=== PATIENT | female | born 2000 | race Caucasian/White ===

== ENCOUNTER 2020-07-04 04:18 | Outpatient (CLI) | payer OTHER ==
--- NOTE | 2020-07-04 06:02 | Non Stress Test Report ---
Non Stress Test Datetime Report Generated by CPN: 07/04/2020 06:02 DEMOGRAPHIC EGA NST: 40.4 INDICATION Indication for Study (NST) Other: lc MONITORING Monitor Explained: Monitor Explained; Test Explained; Patient Verbalized Understanding Time on Monitor: 07/04/2020 04:40 Time off Monitor: 07/04/2020 05:12 NST Duration: 32 NST INTERVENTIONS NST Interventions: PO Hydration; Reposition Patient Physician Notified NST: Dr Ricks BABY A: [id number] BABY A Movement : Present Contraction Frequency : 0 FHR Baseline : 145 Accelerations : 15X15 Decelerations : None Variability : Moderate 6-25bpm NST Review: Meets Criteria for Reactive NST NST Review and Verified By : APRIL Dyer Results: Reactive NST REPORT Report Trigger: Send Report
[2020-07-04 06:23] LABS: APPEARANCE,URINE SLIGHTLY-CLOUDY; BILIRUBIN,URINE NEGATIVE (NEGATIVE); COLOR,URINE YELLOW; GLUCOSE, URINE NEGATIVE (NEGATIVE); KETONES,URINE NEGATIVE (NEGATIVE); LEUKOCYTE ESTERASE,URINE NEGATIVE (NEGATIVE); NITRITE,URINE NEGATIVE (NEGATIVE); PROTEIN,URINE NEGATIVE (NEGATIVE); URINE SPECIFIC GRAVITY 1.019; UROBILINOGEN,URINE NEGATIVE mg/dL (<2.0)
[2020-07-04 06:41] LABS: URINE AMPHETAMINES SCREEN NEGATIVE; URINE BARBITURATES SCREEN NEGATIVE; URINE BENZODIAZEPINES SCREEN NEGATIVE; URINE COCAINE SCREEN NEGATIVE; URINE MARIJUANA (THC) SCREEN NEGATIVE; URINE METHADONE SCREEN NEGATIVE; URINE PHENCYCLIDINE SCREEN NEGATIVE
--- NOTE | 2020-07-05 03:39 | Admission Physical ---
Datetime Report Generated by CPN: 07/05/2020 03:39 CURRENT ADMISSION Chief Complaint: Uterine Contractions Indication for Induction: Not Applicable Admit Impression : Term, Intrauterine ; Active Labor Admit Plan: Admit to Unit; Initiate Labor Protocol ALLERGIES Medication Allergies: No Medication Allergies: No Known Allergies (07/04/2020) Latex: No Latex Allergies OBSTETRICAL HISTORY EDC: 06/30/2020 00:00 : 2 Para: 1 Term: 1 Livin Gestational Diabetes: No Rh Sensitization: No Incompetent Cervix: No MBALE: No Infertility: No ART Treatment: No Uterine Anomaly: No IUGR: No Hx Previous C/S: No Macrosomia: No Hx Loss/Stillborn: No PIH: No Hx : No Placenta Previa/Abruption: No Depression/PP Depression: No PTL/PROM: No Post Hemorrhage: No MEDICAL HISTORY Diabetes: No Blood Transfusion: No Pulmonary Disease (Asthma, TB): No Breast Disease: No Hypertension: No Gritting Machine Operator Surgery: No Heart Disease: No Hosp/Surgery: Yes Autoimmune Disorder: No Anesthetic Complications: No Kidney Disease: No Abnormal Pap Smear: No Neuro/Epilepsy: No Psychiatric Disorders: No Other Medical Diseases: No Hepatitis/Liver Disease: No Significant Family History: No Varicosities/Phlebitis: No Trauma/Violence : No Thyroid Dysfunction: No Medical History Comments: wisdom teeth removal INFECTIOUS HISTORY Gonorrhea: No Genital Herpes: No Chlamydia: No Tuberculosis: No Syphilis: No Hepatitis: No HIV/AIDS Exposure: No Rash or Viral Illness: No HPV: No PHYSICAL EXAM General: Normal HEENT: Normal Neurologic: Normal Thyroid: Normal Heart: Normal Lungs: Normal Breast: Normal Back: Normal Abdomen: Normal Genitourinary Exam: Normal Extremities: Normal DTRs: Normal Pelvic Type: Adequate Vital Signs: Reviewed VAGINAL EXAM Dilatation: 8 Effacement: 100 Station: -1 MEMBRANES Pooling: Negative Membranes: Intact FETUS A EGA: 40.5 Monitoring: External US FHR- Baseline: 150 Variability: Moderate 6-25bpm Accelerations: 15X15 Decelerations: None FHR Category: Category I Estimated Weight (gm): 3400 Presentation: Vertex Admit Comment: delivered within 20 min of arrival to L_D INFORMED CONSENT Signature: with User ID: Savana
--- NOTE | 2020-07-05 04:58 | Birth Certificate Data ---
Cert Data Datetime Report Generated by CPMan: 07/05/2020 04:58 CERTIFICATE DATA 47a. Care: No (07/04/2020 04:23:Mirna Hogan RN) 47b. Date of First Visit: 12/25/2019 00:00 (07/04/2020 04:23:Mirna Hogan RN) 47c. Date of Last Visit: 06/07/2020 00:00 (07/04/2020 04:23:Mirna Hogan RN) 47d. Number of Visits: 3 (07/04/2020 04:23:Mirna Hogan RN) 48a. Number of Prev Live Births: 1 (07/04/2020 04:23:Mirna Hogan RN) 48b. Now Livin (07/04/2020 04:23:Mirna Hogan RN) 48c. Live Births Now : 0 (07/04/2020 04:23:QS system process) 48e. Losses: 0 (07/04/2020 04:23:Mirna Hogan RN) RISK FACTORS IN THIS 49a. Diabetes: No (07/04/2020 04:23:Alycia Velez RN) 49b. Hypertension: No (07/04/2020 04:23:Alycia Velez RN) 49c. Previous Births: 0 (07/04/2020 04:23:Mirna Hogan RN) 49d. Stillborns: No (07/04/2020 04:23:Alycia Velez RN) 49d. IUGR: No (07/04/2020 04:23:Alycia Velez RN) 49e. Infertility Treatment: No (07/04/2020 04:23:Alycia Velez RN) 49f. Previous Cesareans: 0 (07/04/2020 04:23:Mirna Hogan RN) Mother's Height 50b. Height Inches: 66 (07/04/2020 05:54:QS system process) Mother's Weight 51a. Pre- Weight (lbs): 120 (07/04/2020 04:23:Mirna Hogan RN) 51b. Weight at Delivery (lbs): 174 (07/04/2020 05:54:QS system process) 52. Dt Last Normal Menses Began: 09/09/2019 00:00 (07/04/2020 04:23:Mirna Hogan RN) Infections Present/Treated 53a. Gonorrhea: No (07/04/2020 04:23:Alycia Velez RN) 53b. Syphilis: No (07/04/2020 04:23:Alycia Velez RN) 53c. Chlamydia: No (07/04/2020 04:23:Alycia Velez RN) 53d. Hepatitis B: No (07/04/2020 04:23:Alycia eVlez RN) Results this Hospital Visit: Unknown (07/04/2020 04:23:Mirna Hogan RN) 53h. Mother Tested for HBsAG: No (07/04/2020 04:23:Mirna Hogan RN) 53j. Test Result: Unknown (07/04/2020 04:23:Mirna Hogan RN) Cigarette Smoking Cigarette Smoking: Never Smoker. [id number] (07/04/2020 04:23:Mirna Hogan RN) 55a. 3 Months Before Preg - Ci (07/04/2020 04:23:Mirna Hogan RN) 55a. Packs: 0 (07/04/2020 04:23:Mirna Hogan RN) 55b. 1st Trimester of Preg- Ci (07/04/2020 04:23:Mirna Hogan RN) 55b. Packs: 0 (07/04/2020 04:23:Mirna Hogan RN) 55c. 2nd Trimester of Preg- Ci (07/04/2020 04:23:Mirna Hogan RN) 55c. Packs: 0 (07/04/2020 04:23:Mirna Hogan RN) 55d. 3rd Trimester of Preg- Ci (07/04/2020 04:23:Mirna Hogan RN) 55d. Packs: 0 (07/04/2020 04:23:Mirna Hogan RN) Onset of Labor 56a. PROM >12 Hrs: 0.37 (07/05/2020 03:10:QS system process) 56b. Precipitous Labor <3 Hrs: 9 (07/04/2020 04:23:QS system process) 56c. Prolonged Labor > 20 Hrs: 9 (07/04/2020 04:23:QS system process) 57a. Induction of Labor: N/A (07/04/2020 04:23:Mirna Hogan RN) 57c. Non-Vertex Presentation A: Vertex (07/04/2020 04:23:Mirna Hogan RN) 57d. Steroids - Lung Mat: None (07/04/2020 04:23:Mirna Hogan RN) 57d. Steroids - Lung Mat: Not Applicable (07/04/2020 04:23:Mirna Hogan RN) 57f. Mat [place] or Temp >100.4: 98.0 (07/04/2020 04:23:Mirna Hogan RN) 57g. Moderate/Heavy Meconium: Clear (07/05/2020 03:10:Mirna Hogan RN) 57h. Intolerance of Labor: N/A (07/04/2020 04:23:Mirna Hogan RN) : N/A (07/04/2020 04:23:Mirna Hogan RN) 57i. Epidural/Spinal Anesthesia: None (07/04/2020 04:23:Mirna Hogan RN) Method of Delivery 58a. Forceps - Unsuccessful A: N/A (07/04/2020 04:23:Mirna Hogan RN) 58b. Vacuum - Unsuccessful A: N/A (07/04/2020 04:23:Mirna Hogan RN) 58c. Presentation at 58c. Presentation at - A : Vertex (07/04/2020 04:23:Mirna Hogan RN) 58c. Presentation at - A : N/A (07/04/2020 04:23:Mirna Hogan RN) 58c. Presentation at - A : Cephalic (07/04/2020 04:45:Alycia Velez RN) Final Route and Method of Del 58d. Baby A Route/Delivery: Vaginal (07/05/2020 03:32:Mirna Hogan RN) 58e. Trial of Labor Attempted: No (07/04/2020 04:23:Mirna Hogan RN) 58e. Trial of Labor Attempted A: N/A (07/04/2020 04:23:Mirna Hogan RN) 58e. Trial of Labor Attempted B: N/A (07/04/2020 04:23:Mirna Hogan RN) Maternal Morbidity 59b. 3rd or 4th Degree Lacs: None (07/04/2020 04:23:Erica Boss MD ([facility] [place])) Birthweight Baby A: 3060 (07/04/2020 04:23:Therese Lynn RN) 60a. Pounds : 6 (07/04/2020 04:23:QS system process) 60b. Ounces: 12 (07/04/2020 04:23:QS system process) 61. GA at Delivery Baby A: 40.4 (07/04/2020 04:23:Mirna Hogan RN) : Full Term- 39- 40.6 Weeks (07/04/2020 04:23:QS system process) 62a. 5 Minute Baby A: 9 (07/04/2020 04:23:QS system process)
--- NOTE | 2020-07-05 04:58 | Delivery Summary ---
Del Sum A-C Datetime Report Generated by CPN: 07/05/2020 04:58 DELIVERY PERSONNEL DELIVERY PERSONNEL: [id number] Delivery Doctor:: Erica Boss MD Labor and Delivery Nurse:: Mirna Hogan RN Equipment Installation Professional/SKI LIFT OPERATOR: Elvira Sandoval, [employer] FUSER CIRCULAR MATERNAL INFORMATION Delivery Anesthesia: None Medications After Delivery: Pitocin 30 Units in 500ml NS/D5W Estimated Blood Loss (ml): 50 Delivery QBL: 50 Maternal Complications: None LABOR SUMMARY EDC: 06/30/2020 00:00 No. Babies in Womb: 1 Attempted: No Labor Anesthesia: None LABOR INFORMATION Reason for Induction: Not Applicable Onset of Labor: 07/04/2020 18:00 Complete Dilatation: 07/05/2020 03:32 Oxytocin: N/A Group B Beta Strep: negative Steroids Given: None Reason Steroids Not Administered: Not Applicable MEMBRANES Membranes Rupture Method: Spontaneous Rupture of Membranes: 07/05/2020 03:10 Length of Rupture (hr): 0.37 Amniotic Fluid Color: Clear Amniotic Fluid Amount: Moderate Amniotic Fluid Odor: Normal STAGES OF LABOR Stage 1 hr: 9 Stage 1 min: 32 Stage 2 hr: 0 Stage 2 min: 0 Stage 3 hr: 0 Stage 3 min: 3 Total Time in Labor hr: 9 Total Time in Labor min: 35 VAGINAL DELIVERY Episiotomy: None Laceration #1: None Laceration Extension #1: N/A Laceration Repair: Not Applicable Sponge Count Correct: Yes Sharps Count Correct: Yes CSECTION DELIVERY Primary Indication: N/A Secondary Indication: N/A CSection Incidence: N/A Labor: N/A Elective: N/A BABY A INFORMATION Delivery Date/Time: 07/05/2020 03:32 Method of Delivery: Vaginal Nurse Controlled Delivery: No Born in Route : No : N/A Forceps: N/A Vacuum Extraction: N/A Shoulder Dystocia : No PRESENTATION/POSITION BABY A Presentation: Cephalic Cephalic Presentation: Vertex Vertex Position: Left Occipital Anterior Breech Presentation: N/A PLACENTA INFORMATION BABY A Placenta Delivery Time : 07/05/2020 03:35 Placenta Method of Delivery: Spontaneous Placenta Status: Delivered SCORES BABY A Heart Rate 1 min: >100 bpm Resp Effort 1 min: Good Cry Reflex Irritability 1 min: Cough or Sneeze or Pulls Away Muscle Tone 1 min: Active Motion Color 1 min: Blue/Pale Resuscitation Effort 1 min: Tactile Stimulation SCORE 1 MIN: 8 Heart Rate 5 min: >100 bpm Resp Effort 5 min: Good Cry Reflex Irritability 5 min: Cough or Sneeze or Pulls Away Muscle Tone 5 min: Active Motion Color 5 min: Body [place], Extremities Blue Resuscitation Effort 5 min: Tactile Stimulation SCORE 5 MIN: 9 INFANT INFORMATION BABY A Gestational Age at Delivery: 40.4 Gestational Status: Full Term- 39- 40.6 Weeks Outcome : Liveborn Infant Condition : Stable Sex: Male IDENTIFICATION BABY A Verification Date/Time: 07/05/2020 04:07 ID Band Number: [id number] Mother's Name Verified: Yes Infant RN Verifying : Thang Hogan RN/ T. Gypsyilin RN WEIGHT/LENGTH BABY A Birthweight (gm): 3060 Infant Weight (lb): 6 Infant Weight (oz): 12 Length (in): 19.50 Length (cm): 49.53 CORD INFORMATION BABY A No. Cord Vessels: 3 Nuchal Cord : N/A Cord Blood Taken: Yes-For Eval (Mom's Blood Type - or O+) ASSESSMENT BABY A Skin to Skin: Yes BABY B INFORMATION : N/A SIGNATURES Signature: with User ID: [email or web address]
== END 2020-07-04 05:53 | disposition home or self-care (01) ==
LOC: LC 04:18
PROVIDERS: ATTEND Obstetrics & Gynecology
DX: O47.1 False labor at or after 37 completed weeks of gestation (principal); Z3A.40 40 weeks gestation of pregnancy
CPT/HCPCS: 80307; 81005

== ENCOUNTER 2020-07-05 02:57 | Inpatient (IN) | payer OTHER ==
[2020-07-05] MEDS ORDERED: MISOPROSTOL 0.2 MG TABLET ONE (03:15)
[2020-07-05] MEDS ORDERED: OXYTOCIN 10 UNIT/ML VIAL ONE (03:15)
[2020-07-05] MEDS ORDERED: OXYTOCIN/0.9 % SODIUM CHLORIDE 30 UNIT/500 ML RTUINJ ONE (03:16)
[2020-07-05] MEDS ORDERED: LIDOCAINE 1% INJ-PF (10 MG/ML) 30 ML SDV ONE (03:16)
[2020-07-05] MEDS ORDERED: RINGERS SOLUTION,LACTATED 1,000 ML IV ONE (03:18)
[2020-07-05] MEDS ORDERED: RINGERS SOLUTION,LACTATED 1,000 ML IV PRN (03:18)
[2020-07-05 03:22] LABS: APPEARANCE,URINE SLIGHTLY-CLOUDY; BILIRUBIN,URINE NEGATIVE (NEGATIVE); COLOR,URINE YELLOW; GLUCOSE, URINE NEGATIVE (NEGATIVE); KETONES,URINE 80 mg/dL (NEGATIVE); LEUKOCYTE ESTERASE,URINE TRACE (NEGATIVE); NITRITE,URINE NEGATIVE (NEGATIVE); PROTEIN,URINE 100 mg/dL (NEGATIVE); URINE SPECIFIC GRAVITY 1.026; UROBILINOGEN,URINE NEGATIVE mg/dL (<2.0)
[2020-07-05 03:39] LABS: URINE AMPHETAMINES SCREEN NEGATIVE; URINE BARBITURATES SCREEN NEGATIVE; URINE BENZODIAZEPINES SCREEN NEGATIVE; URINE COCAINE SCREEN NEGATIVE; URINE MARIJUANA (THC) SCREEN NEGATIVE; URINE METHADONE SCREEN NEGATIVE; URINE PHENCYCLIDINE SCREEN NEGATIVE
[2020-07-05] MEDS ORDERED: ZOLPIDEM TARTRATE 5 MG TABLET PO PRN (03:42)
[2020-07-05] MEDS ORDERED: MEASLES,MUMPS&RUBELLA VACC/PF 0.5 ML VIAL SUBCUT PRN (03:42)
[2020-07-05] MEDS ORDERED: DIPH/PERTUSS(ACELL)/TETANUS VAC/PF 0.5 ML SYR (>=10YO) IM PRN (03:42)
[2020-07-05] MEDS ORDERED: PROMETHAZINE HCL 25 MG SUPP.RECT PR PRN (03:42)
[2020-07-05] MEDS ORDERED: GLYCERIN/WITCH HAZEL LEAF 1 EACH MED..WIPE TP PRN (03:42)
[2020-07-05] MEDS ORDERED: ACETAMINOPHEN 650 MG SUPP.RECT PR PRN (03:42)
[2020-07-05] MEDS ORDERED: DIPHENHYDRAMINE HCL 25 MG CAPSULE PO PRN (03:42)
[2020-07-05] MEDS ORDERED: MAGNESIUM HYDROXIDE SUSP 30 ML UDCUP PO PRN (03:42)
[2020-07-05] MEDS ORDERED: ACETAMINOPHEN WITH CODEINE #3 TABLET PO PRN ×2 (03:42)
[2020-07-05] MEDS ORDERED: NA PHOS,M-B/NA PHOS,DI-BA (ADULT) 133 ML ENEMA PR PRN (03:42)
[2020-07-05] MEDS ORDERED: PSEUDOEPHEDRINE HCL 30 MG TABLET PO PRN (03:42)
[2020-07-05] MEDS ORDERED: DIBUCAINE 1% OINTMENT 28 GM TP PRN (03:42)
[2020-07-05] MEDS ORDERED: ACETAMINOPHEN 325 MG TABLET PO PRN (03:42)
[2020-07-05] MEDS ORDERED: PROMETHAZINE HCL 25 MG TABLET PO PRN (03:42)
[2020-07-05] MEDS ORDERED: PROMETHAZINE HCL INJ 25 MG/1 ML VIAL IV PRN (03:42)
[2020-07-05] MEDS ORDERED: BENZOCAINE/MENTHOL AEROSOL SPRAY 56 ML TOP PRN (03:42)
[2020-07-05] MEDS ORDERED: OXYTOCIN/0.9 % SODIUM CHLORIDE 30 UNIT/500 ML RTUINJ IV PRN (03:42)
[2020-07-05] MEDS ORDERED: IBUPROFEN 800 MG TABLET ONE (03:43)
[2020-07-05] MEDS: IBUPROFEN 800 MG TABLET PO SCH ×3 (03:45→22:23)
[2020-07-05 07:01] LABS: ABSOLUTE LYMPHOCYTES (AUTO) 1.7 10^3/uL (0.5-4.7); ABSOLUTE MONOCYTES (AUTO) 0.5 10^3/uL (0.1-1.4); ABSOLUTE NEUT (AUTO) 13.1 10^3/uL (1.7-8.2); BASOPHILS % (AUTO) 0.1 % (0-2); EOSINOPHILS % (AUTO) 0.1 % (0-6); HEMOGLOBIN 11.7 g/dL (12.0-15.5); LYMPHOCYTES % (AUTO) 10.9 % (13-45); MEAN CORPUSCULAR HEMOGLOBIN 27.9 pg (27.0-33.4); MEAN CORPUSCULAR HGB CONC 33.3 g/dL (32.0-36.0); MEAN CORPUSCULAR VOLUME 84 fl (80-97); MONOCYTES % (AUTO) 3.6 % (3-13); PLATELET COUNT 202 10^3/uL (150-450); RED BLOOD COUNT 4.19 10^6/uL (3.72-5.28); RED CELL DISTRIBUTION WIDTH 15.7 % (11.5-14.0); SEGMENTED NEUTROPHILS % (AUTO) 85.3 % (42-78); TOTAL CELLS COUNTED % (AUTO) 100 %; WHITE BLOOD COUNT 15.3 10^3/uL (4.0-10.5)
[2020-07-05] MEDS: SENNOSIDES/DOCUSATE 8.6-50 MG 1 EACH TABLET PO SCH (09:16)
[2020-07-05] MEDS: FERROUS SULFATE 325 MG TABLET PO SCH ×2 (09:17→17:50)
[2020-07-05] MEDS: PRENATAL VITAMIN W DHA CAPSULE PO SCH (09:18)
[2020-07-05] MEDS: DOCUSATE SODIUM 100 MG CAPSULE PO SCH ×2 (09:18→17:50)
[2020-07-05] MEDS: FAMOTIDINE 20 MG TABLET PO SCH ×2 (09:18→22:25)
--- NOTE | 2020-07-05 09:45 | PDOC PROGRESS REPORT ---
Subjective-OB Progress Note for:: 07/05/20 Subjective: Doing well, no c/o, came in and delivered fast, fob at BS, no c/o, plans to breastfeed Physical Exam (OB) Vital Signs: Temp Pulse Resp BP Pulse Ox 98.4 F 93 16 125/72 100 07/05/20 08:00 07/05/20 08:00 07/05/20 08:00 07/05/20 08:00 07/05/20 08:00 Intake & Output 07/04/20 07/05/20 07/06/20 06:59 06:59 06:59 Weight 78.2 kg - PIH/Pre-Eclampsia Clonus: Negative Headache: Absent Epigastric Pain: No Visual Changes: No - Maternal Morbidity 59. Maternal Morbidity (serious complications experinced by the mother associated with labor and delivery: None of the above - Lochia Lochia Amount: Moderate 25-50 ml Lochia Color: Rubra/Red - Abdomen Description: Firm Hernia Present: No Fundal Description: Firm Fundal Height: u/u - u/2 Objective-Diagnostic Laboratory: 07/05/20 06:45 07/05/20 07/05/20 07/05/20 03:10 06:45 06:45 WBC 15.3 H RBC 4.19 Hgb 11.7 L Hct 35.0 L MCV 84 MCH 27.9 MCHC 33.3 RDW 15.7 H Plt Count 202 Seg Neutrophils % 85.3 H Urine Color YELLOW Urine Appearance SLIGHTLY-CLOUDY Urine pH 8.0 Ur Specific [place] 1.026 Urine Protein 100 H Urine Glucose (UA) NEGATIVE Urine Ketones 80 H Urine Blood SMALL H Urine Nitrite NEGATIVE Ur Leukocyte Esterase TRACE H Blood Type O POSITIVE Antibody Screen NEGATIVE Assessment and Plan(PN) - Assessment and Plan (1) Vaginal delivery Is this a current diagnosis for this admission?: Yes (2) care insufficient Qualifiers: Trimester: unspecified trimester Qualified Code(s): O09.30 - Supervision of with insufficient care, unspecified trimester Is this a current diagnosis for this admission?: Yes - Time Spent with Patient Time with patient: Less than 15 minutes Medications reviewed and adjusted accordingly: Yes - Disposition Anticipated Discharge Disposition: Home, Self Care Anticipated Discharge Timeframe: within 48 hours
[2020-07-06] MEDS: IBUPROFEN 800 MG TABLET PO SCH ×3 (06:31→22:11)
[2020-07-06 07:09] LABS: HEPATITS B SURFACE ANTIGEN Negative (Negative)
[2020-07-06] MEDS: FERROUS SULFATE 325 MG TABLET PO SCH ×2 (10:14→18:40)
[2020-07-06] MEDS: SENNOSIDES/DOCUSATE 8.6-50 MG 1 EACH TABLET PO SCH (10:14)
[2020-07-06] MEDS: DOCUSATE SODIUM 100 MG CAPSULE PO SCH ×2 (10:14→18:40)
[2020-07-06] MEDS: PRENATAL VITAMIN W DHA CAPSULE PO SCH (10:14)
[2020-07-06] MEDS: FAMOTIDINE 20 MG TABLET PO SCH ×2 (10:14→22:11)
[2020-07-06 11:14] LABS: HEMATOCRIT 34.1 % (36.0-47.0); HEMOGLOBIN 11.4 g/dL (12.0-15.5); MEAN CORPUSCULAR HEMOGLOBIN 28.5 pg (27.0-33.4); MEAN CORPUSCULAR HGB CONC 33.3 g/dL (32.0-36.0); MEAN CORPUSCULAR VOLUME 85 fl (80-97); PLATELET COUNT 186 10^3/uL (150-450); RED CELL DISTRIBUTION WIDTH 15.9 % (11.5-14.0); WHITE BLOOD COUNT 10.3 10^3/uL (4.0-10.5)
--- NOTE | 2020-07-06 14:34 | PDOC PROGRESS REPORT ---
Subjective-OB Progress Note for:: 07/06/20 Subjective: 20yo s/p ppd 1. pt is ambulating, voiding and bonding well with baby, reports pain well controlled with medication no concerns today Physical Exam (OB) Vital Signs: Temp Pulse Resp BP Pulse Ox 97.9 F 85 16 125/73 100 07/06/20 10:00 07/06/20 07:45 07/06/20 07:45 07/06/20 07:45 07/06/20 07:45 Intake & Output 07/05/20 07/06/20 07/07/20 06:59 06:59 06:59 Intake Total 600 400 Balance 600 400 Weight 78.2 kg - General General Appearance: Appears well In distress: None - PIH/Pre-Eclampsia DTR's: 1 + Clonus: Negative Headache: Absent Epigastric Pain: No Visual Changes: No - Maternal Morbidity 59. Maternal Morbidity (serious complications experinced by the mother associated with labor and delivery: None of the above - Episiotomy/Laceration Site Condition: Well Approximated - Lochia Lochia Amount: Scant < 10 ml Lochia Color: Rubra/Red - Abdomen Description: Firm, Soft Hernia Present: No Fundal Description: Firm, Midline Fundal Height: u/u - u/2 - Respiratory Respiratory Status: No respiratory distress - Extremities Upper extremity: Normal inspection Lower extremities: Normal inspection - Neurological Cognition: Normal Orientation: AAOx4 - Psychological Associated symptoms: Normal affect, Normal mood Objective-Diagnostic Laboratory: 07/06/20 10:50 07/06/20 10:50 WBC 10.3 RBC 4.00 Hgb 11.4 L Hct 34.1 L MCV 85 MCH 28.5 MCHC 33.3 RDW 15.9 H Plt Count 186 Assessment and Plan(PN) - Assessment and Plan (1) care insufficient Qualifiers: Trimester: unspecified trimester Qualified Code(s): O09.30 - Supervision of with insufficient care, unspecified trimester Is this a current diagnosis for this admission?: Yes Plan: delivered (2) Vaginal delivery Is this a current diagnosis for this admission?: Yes Plan: routine pp care - Time Spent with Patient Time with patient: Less than 15 minutes Medications reviewed and adjusted accordingly: Yes - Disposition Anticipated Discharge Disposition: Home, Self Care Anticipated Discharge Timeframe: within 24 hours
[2020-07-07] MEDS: IBUPROFEN 800 MG TABLET PO SCH (05:02)
[2020-07-07 07:54] VITALS: BP 112/71
[2020-07-07] MEDS: FERROUS SULFATE 325 MG TABLET PO SCH (09:14)
[2020-07-07] MEDS: DOCUSATE SODIUM 100 MG CAPSULE PO SCH (09:14)
[2020-07-07] MEDS: PRENATAL VITAMIN W DHA CAPSULE PO SCH (09:14)
[2020-07-07] MEDS: FAMOTIDINE 20 MG TABLET PO SCH (09:14)
[2020-07-07] MEDS: SENNOSIDES/DOCUSATE 8.6-50 MG 1 EACH TABLET PO SCH (09:14)
--- NOTE | 2020-07-07 11:40 | PDOC PROGRESS REPORT ---
Subjective-OB Progress Note for:: 07/07/20 Subjective: Ready for discharge. Physical Exam (OB) Vital Signs: Temp Pulse Resp BP Pulse Ox 97.9 F 83 14 112/71 99 07/07/20 07:50 07/07/20 07:50 07/07/20 07:50 07/07/20 07:50 07/07/20 07:50 Intake & Output 07/06/20 07/07/20 07/08/20 06:59 06:59 06:59 Intake Total 600 1180 Balance 600 1180 - PIH/Pre-Eclampsia DTR's: 1 + Clonus: Negative Headache: Absent Epigastric Pain: No Visual Changes: No - Maternal Morbidity 59. Maternal Morbidity (serious complications experinced by the mother associated with labor and delivery: None of the above - Lochia Lochia Amount: Small 10-25 ml Lochia Color: Rubra/Red - Abdomen Description: Firm Hernia Present: No Bowel Sounds: Normoactive Flatus Presence: Present Stool: No Fundal Description: Firm Fundal Height: u/u - u/2 Objective-Diagnostic Laboratory: 07/06/20 10:50 Assessment and Plan(PN) - Time Spent with Patient Time with patient: 15-25 minutes Medications reviewed and adjusted accordingly: Yes - Disposition Anticipated Discharge Disposition: Home, Self Care Anticipated Discharge Timeframe: within 24 hours
--- NOTE | 2020-07-07 11:45 | PDOC DISCHARGE SUMMARY ---
Impression - Admit/DC Date/PCP Admission Date/Primary Care Provider: 07/05/20 03:21 NO LOCALMD Discharge Date: 07/07/20 - Discharge Diagnosis (1) care insufficient Is this a current diagnosis for this admission?: Yes (2) Vaginal delivery Is this a current diagnosis for this admission?: Yes - Additional Information Resuscitation Status: Full Code Discharge Diet: Regular Discharge Activity: Activity As Tolerated, Balance Activity w/Rest, Pelvic Rest, Slowly Increase Activity, No tub bath Referrals: LLUVIA,KEV [Primary Care Provider] - LAURY PRATER MD [ACTIVE STAFF] - Home Medications: Vit No.130/Iron/Folic [ Tablet] 1 tab PO DAILY 07/04/20 HPI Gestational Age: 40.4 wks Reason(s) for Admission: Onset of Labor Procedures: Ultrasound Intrapartum Procedure(s): Spontaneous Vaginal Delivery Hospital Course 59. Maternal Morbidity (serious complications experinced by the mother associated with labor and delivery: None of the above Results Laboratory Results: WBC 10.3 10^3/uL (4.0-10.5) 07/06/20 10:50 RBC 4.00 10^6/uL (3.72-5.28) 07/06/20 10:50 Hgb 11.4 g/dL (12.0-15.5) L 07/06/20 10:50 Hct 34.1 % (36.0-47.0) L 07/06/20 10:50 MCV 85 fl (80-97) 07/06/20 10:50 MCH 28.5 pg (27.0-33.4) 07/06/20 10:50 MCHC 33.3 g/dL (32.0-36.0) 07/06/20 10:50 RDW 15.9 % (11.5-14.0) H 07/06/20 10:50 Plt Count 186 10^3/uL (150-450) 07/06/20 10:50 Lymph % (Auto) 10.9 % (13-45) L 07/05/20 06:45 Garza % (Auto) 3.6 % (3-13) 07/05/20 06:45 Eos % (Auto) 0.1 % (0-6) 07/05/20 06:45 Baso % (Auto) 0.1 % (0-2) 07/05/20 06:45 Absolute Neuts (auto) 13.1 10^3/uL (1.7-8.2) H 07/05/20 06:45 Absolute Lymphs (auto) 1.7 10^3/uL (0.5-4.7) 07/05/20 06:45 Absolute Monos (auto) 0.5 10^3/uL (0.1-1.4) 07/05/20 06:45 Absolute Eos (auto) 0.0 10^3/uL (0.0-0.6) 07/05/20 06:45 Absolute Basos (auto) 0.0 10^3/uL (0.0-0.2) 07/05/20 06:45 Seg Neutrophils % 85.3 % (42-78) H 07/05/20 06:45 Urine Color YELLOW 07/05/20 03:10 Urine Appearance SLIGHTLY-CLOUDY 07/05/20 03:10 Urine pH 8.0 (5.0-9.0) 07/05/20 03:10 Ur Specific [place] 1.026 07/05/20 03:10 Urine Protein 100 mg/dL (NEGATIVE) H 07/05/20 03:10 Urine Glucose (UA) NEGATIVE mg/dL (NEGATIVE) 07/05/20 03:10 Urine Ketones 80 mg/dL (NEGATIVE) H 07/05/20 03:10 Urine Blood SMALL (NEGATIVE) H 07/05/20 03:10 Urine Nitrite NEGATIVE (NEGATIVE) 07/05/20 03:10 Urine Bilirubin NEGATIVE (NEGATIVE) 07/05/20 03:10 Urine Urobilinogen NEGATIVE mg/dL (<2.0) 07/05/20 03:10 Ur Leukocyte Esterase TRACE (NEGATIVE) H 07/05/20 03:10 Urine Ascorbic Acid NEGATIVE (NEGATIVE) 07/05/20 03:10 Urine Opiates Screen NEGATIVE 07/05/20 03:10 Urine Methadone Screen NEGATIVE 07/05/20 03:10 Ur Barbiturates Screen NEGATIVE 07/05/20 03:10 Ur Phencyclidine Scrn NEGATIVE 07/05/20 03:10 Ur Amphetamines Screen NEGATIVE 07/05/20 03:10 U Benzodiazepines Scrn NEGATIVE 07/05/20 03:10 Urine Cocaine Screen NEGATIVE 07/05/20 03:10 U Marijuana (THC) Screen NEGATIVE 07/05/20 03:10 RPR NONREACTIVE (NONREACTIVE) 07/05/20 06:45 Hep Bs Antigen Negative (Negative) 07/05/20 06:45 Blood Type O POSITIVE 07/05/20 06:45 Antibody Screen NEGATIVE 07/05/20 06:45 Plan Time Spent: Greater than 30 Minutes
--- NOTE | 2020-07-08 13:15 | Delivery Summary ---
Del Sum A-C Datetime Report Generated by CPN: 07/08/2020 13:15 DELIVERY PERSONNEL DELIVERY PERSONNEL: [id number] Delivery Doctor:: Erica Boss MD Labor and Delivery Nurse:: Mirna Hogan RN Administration Vice President/MULT AU MATIC OPERATOR: Elvira Sandoval, ELECTRIC SOLDERER MATERNAL INFORMATION Delivery Anesthesia: None Medications After Delivery: Pitocin 30 Units in 500ml NS/D5W Estimated Blood Loss (ml): 50 Delivery QBL: 50 Maternal Complications: None LABOR SUMMARY EDC: 06/30/2020 00:00 No. Babies in Womb: 1 Attempted: No Labor Anesthesia: None LABOR INFORMATION Reason for Induction: Not Applicable Onset of Labor: 07/04/2020 18:00 Complete Dilatation: 07/05/2020 03:32 Oxytocin: N/A Group B Beta Strep: negative Steroids Given: None Reason Steroids Not Administered: Not Applicable MEMBRANES Membranes Rupture Method: Spontaneous Rupture of Membranes: 07/05/2020 03:10 Length of Rupture (hr): 0.37 Amniotic Fluid Color: Clear Amniotic Fluid Amount: Moderate Amniotic Fluid Odor: Normal STAGES OF LABOR Stage 1 hr: 9 Stage 1 min: 32 Stage 2 hr: 0 Stage 2 min: 0 Stage 3 hr: 0 Stage 3 min: 3 Total Time in Labor hr: 9 Total Time in Labor min: 35 VAGINAL DELIVERY Episiotomy: None Laceration #1: None Laceration Extension #1: N/A Laceration Repair: Not Applicable Sponge Count Correct: Yes Sharps Count Correct: Yes CSECTION DELIVERY Primary Indication: N/A Secondary Indication: N/A CSection Incidence: N/A Labor: N/A Elective: N/A BABY A INFORMATION Delivery Date/Time: 07/05/2020 03:32 Method of Delivery: Vaginal Nurse Controlled Delivery: No Born in Route : No : N/A Forceps: N/A Vacuum Extraction: N/A Shoulder Dystocia : No PRESENTATION/POSITION BABY A Presentation: Cephalic Cephalic Presentation: Vertex Vertex Position: Left Occipital Anterior Breech Presentation: N/A PLACENTA INFORMATION BABY A Placenta Delivery Time : 07/05/2020 03:35 Placenta Method of Delivery: Spontaneous Placenta Status: Delivered SCORES BABY A Heart Rate 1 min: >100 bpm Resp Effort 1 min: Good Cry Reflex Irritability 1 min: Cough or Sneeze or Pulls Away Muscle Tone 1 min: Active Motion Color 1 min: Blue/Pale Resuscitation Effort 1 min: Tactile Stimulation SCORE 1 MIN: 8 Heart Rate 5 min: >100 bpm Resp Effort 5 min: Good Cry Reflex Irritability 5 min: Cough or Sneeze or Pulls Away Muscle Tone 5 min: Active Motion Color 5 min: Body [place], Extremities Blue Resuscitation Effort 5 min: Tactile Stimulation SCORE 5 MIN: 9 INFANT INFORMATION BABY A Gestational Age at Delivery: 40.4 Gestational Status: Full Term- 39- 40.6 Weeks Outcome : Liveborn Infant Condition : Stable Sex: Male IDENTIFICATION BABY A Verification Date/Time: 07/05/2020 04:07 ID Band Number: [id number] Mother's Name Verified: Yes Infant RN Verifying : Thang Hogan RN/ T. Gypsyilin RN WEIGHT/LENGTH BABY A Birthweight (gm): 3060 Infant Weight (lb): 6 Infant Weight (oz): 12 Length (in): 19.50 Length (cm): 49.53 CORD INFORMATION BABY A No. Cord Vessels: 3 Nuchal Cord : N/A Cord Blood Taken: Yes-For Eval (Mom's Blood Type - or O+) ASSESSMENT BABY A Skin to Skin: Yes Skin to Skin: Yes BABY B INFORMATION : N/A SIGNATURES Signature: with User ID: Savana
--- NOTE | 2020-07-08 13:16 | Admission Physical ---
Datetime Report Generated by CPN: 07/08/2020 13:16 CURRENT ADMISSION Chief Complaint: Uterine Contractions Indication for Induction: Not Applicable Admit Impression : Term, Intrauterine ; Active Labor Admit Plan: Admit to Unit; Initiate Labor Protocol ALLERGIES Medication Allergies: No Medication Allergies: No Known Allergies (07/05/2020) Medication Allergies: No Known Allergies (07/04/2020) Latex: No Latex Allergies OBSTETRICAL HISTORY EDC: 06/30/2020 00:00 : 2 Para: 1 Term: 1 : 0 SAB: 0 IAB: 0 Ectopic: 0 Livin Cesareans: 0 VBACs: 0 Multiple Births: 0 Gestational Diabetes: No Rh Sensitization: No Incompetent Cervix: No MABLE: No Infertility: No ART Treatment: No Uterine Anomaly: No IUGR: No Hx Previous C/S: No Macrosomia: No Hx Loss/Stillborn: No PIH: No Hx : No Placenta Previa/Abruption: No Depression/PP Depression: No PTL/PROM: No Post Hemorrhage: No Obstetrical History Comments: 2018 IUGR G2- current SEE RECORDS Alcohol: No Marijuana : Yes Cocaine: No Other Illicit Drugs: No Cigarettes: Never Smoker. [id number] MEDICAL HISTORY Diabetes: No Blood Transfusion: No Pulmonary Disease (Asthma, TB): No Breast Disease: No Hypertension: No Posting Specialist Surgery: No Heart Disease: No Hosp/Surgery: Yes Autoimmune Disorder: No Anesthetic Complications: No Kidney Disease: No Abnormal Pap Smear: No Neuro/Epilepsy: No Psychiatric Disorders: No Other Medical Diseases: No Hepatitis/Liver Disease: No Significant Family History: No Varicosities/Phlebitis: No Trauma/Violence : No Thyroid Dysfunction: No Medical History Comments: wisdom teeth removal INFECTIOUS HISTORY Gonorrhea: No Genital Herpes: No Chlamydia: No Tuberculosis: No Syphilis: No Hepatitis: No HIV/AIDS Exposure: No Rash or Viral Illness: No HPV: No PHYSICAL EXAM General: Normal HEENT: Normal Neurologic: Normal Thyroid: Normal Heart: Normal Lungs: Normal Breast: Normal Back: Normal Abdomen: Normal Genitourinary Exam: Normal Extremities: Normal DTRs: Normal Pelvic Type: Adequate Vital Signs: Reviewed VAGINAL EXAM Dilatation: 8 Effacement: 100 Station: -1 MEMBRANES Pooling: Negative Membranes: Intact FETUS A EGA: 40.5 Monitoring: External US FHR- Baseline: 150 Variability: Moderate 6-25bpm Accelerations: 15X15 Decelerations: None FHR Category: Category I Estimated Weight (gm): 3400 Presentation: Vertex Admit Comment: delivered within 20 min of arrival to L_D PLANS FOR LABOR AND DELIVERY Labor and Delivery: None Pain Management: None Feeding Preference: Breast Benefit of Breast Feed Discussed: Yes INFORMED CONSENT Signature: with User ID: [email or web address]
== END 2020-07-07 13:36 | disposition home or self-care (01) | DRG 807 ==
LOC: LC 02:57 → LR 03:21 → 2S 05:37
PROVIDERS: ADMIT Obstetrics & Gynecology; ATTEND Obstetrics & Gynecology
PROC: 10E0XZZ Delivery of Products of Conception, External Approach (ICD-10-PCS; principal; 2020-07-05)
DX: O80 Encounter for full-term uncomplicated delivery (principal); Z37.0 Single live birth; Z3A.40 40 weeks gestation of pregnancy
CPT/HCPCS: 36415; 80307; 81005; 85025; 86592; 86850; 86900; 86901; 87340; 87522; J2590; J3490